=== PATIENT | female | born 1980 | race Hispanic/Latino ===

== ENCOUNTER 2017-04-16 01:07 | Emergency (ER) | payer OTHER, SELFPAY ==
[2017-04-16 01:53] LABS: #Basophils 0.1 thou/uL (0.0-0.2); #Eosinphils 0.3 thou/uL (0.0-0.7); #Lymphocytes 3.2 thou/uL (1.20-3.40); #Monocytes 0.3 thou/uL (0.11-0.59); #Neutrophils 5.8 thou/uL (1.40-6.50); %Eosinophils 3.4 % (0.0-10.0); %Lymphocytes 32.8 % (21.0-51.0); %Monocytes 3.5 % (0.0-10.0); %Neutrophils 59.4 % (42.0-75.0); Hemoglobin 14.2 g/dL (12.0-16.0); Mean Corpuscular HGB CONC 34.7 g/dL (32.0-36.0); Mean Corpuscular Hemoglobin 32.5 pg (27.0-31.0); Mean Corpuscular Volume 93.6 fl (81.0-99.0); Mean Platelet Volume 6.8 fL (7.4-10.4); Platelet Count 320 thou/uL (130-400); RBC Distribution Width 11.4 % (11.5-14.5); Red Blood Cell (RBC) Count 4.37 mill/uL (4.20-5.40); White Blood Cell (WBC) Count 9.7 thou/uL (4.8-10.8)
[2017-04-16 03:12] LABS: ALT (SGPT) 212 U/L (8-55); AST (SGOT) 476 U/L (5-34); Albumin 3.9 g/dL (3.5-5.0); Alkaline Phosphatase 63 U/L (40-150); Anion Gap 10 mmol/L (10-20); BUN (Urea Nitrogen) 11 mg/dL (7.0-18.7); Bilirubin, Total 0.4 mg/dL (0.2-1.2); Calc. Creatinine Clearance 0 mL/min (70-130); Calcium 9.2 mg/dL (7.8-10.44); Carbon Dioxide 27 mmol/L (22-29); Chloride 100 mmol/L (98-107); Estimated GFR-MDRD Greater than 90; Globulin 3.1 g/dL (2.4-3.5); Glucose 101 mg/dL (70-105); Potassium 3.6 mmol/L (3.5-5.1); Sodium 133 mmol/L (136-145)
[2017-04-16 06:23] LABS: Troponin I Less than 0.010 ng/mL (< 0.028)
[2017-04-16 06:24] LABS: CKMB 12.4 ng/mL (0-6.6)
--- NOTE | 2017-04-16 10:05 | ULT ---
PRELIMINARY REPORT/[facility]/EMERGENCY AFTER HOURS PROCEDURE: EXAM: US Duplex Bilateral Upper Extremity Veins CLINICAL HISTORY: 36 years old, female; Pain; Other: Bue pain, swelling TECHNIQUE: Real-time ultrasound scan of the veins of the bilateral upper extremities with color Doppler flow, sp ectral waveform analysis and compression. COMPARISON: No relevant prior studies available. FINDINGS: Mildly limited due to swelling Right deep veins: Unremarkable. No DVT in the right internal jugular, subclavian, axillary, or brachi al veins. The veins demonstrate normal color flow, are normally compressible, with normal phasic flow and/or augmentation response. Right superficial veins: Unremarkable. No thrombus in the visualized right basilic and cephalic veins . Left deep veins: Unremarkable. No DVT in the left internal jugular, subclavian, axillary, or brachial veins. The veins demonstrate normal color flow, are normally compressible, with normal phasic flow a nd/or augmentation response. Left superficial veins: Unremarkable. No thrombus in the visualized left basilic and cephalic veins. Soft tissues: No acute findings. IMPRESSION: No definite sonographic evidence for deep venous thrombosis in the upper extremities Thank you for allowing us to participate in the care of your patient. Dictated and Authenticated by: Mikey Fitzgerald MD 04/16/2017 7:12 AM Central Time ([place] & [place]) FINAL REPORT EMERGENCY AFTER HOURS BILATERAL UPPER EXTREMITY VENOUS DOPPLER: Date: 04/16/17 IMPRESSION: I agree with the preliminary interpretation given by Margarita. POS: [facility]
--- NOTE | 2017-04-16 10:07 | CT ---
PRELIMINARY REPORT/[facility]/EMERGENCY AFTER HOURS PROCEDURE: EXAM: CT Angiography Chest With Intravenous Contrast CLINICAL HISTORY: 36 years old, female; Signs and symptoms; Other: Extremity swelling; Patient HX: , F34 presents to ed C/O bue swelling and pain that began 5 days ago and gradually worsened. Pt reports no HX of blood cl ots or of similar SX. Pt denies SOB or cp. Pt denies trauma or khushboo. TECHNIQUE: Axial computed tomographic angiography images of the chest with intravenous contrast using pulmonary embolism protocol. COMPARISON: No relevant prior studies available. FINDINGS: Pulmonary arteries: No pulmonary embolism. Aorta: No acute findings. No thoracic aortic aneurysm. Lungs: Unremarkable. No mass. No consolidation. Pleural space: No significant effusion. No pneumothorax. Heart: No cardiomegaly. No significant pericardial effusion. No evidence of RV dysfunction. Bones/joints: No acute fracture. No dislocation. Soft tissues: Mild infiltration/swelling over the left pectoralis muscle and manubrium/sternum. No di scernible drainable collection Lymph nodes: Unremarkable. No enlarged lymph nodes. IMPRESSION: No definite pulmonary embolism detected Mild infiltration over the superior chest wall without definite focal collection. Correlate clinicall y for infection/cellulitis Thank you for allowing us to participate in the care of your patient. Dictated and Authenticated by: Mikey Fitzgerald MD 04/16/2017 7:19 AM Central Time ([place] & [place]) FINAL REPORT EMERGENCY AFTER HOURS CT PULMONARY ANGIOGRAM WITH IV CONTRAST AND 3D MIP RECONSTRUCTIONS: Date: 04/16/17 IMPRESSION: I agree with the preliminary interpretation given by [facility]. No evidence for central or segmental pulmo nary embolus. Soft tissue findings involving the anterior chest wall suggestive of cellulitis or jaspreet a. Heterogeneous density within the gallbladder likely reflecting gallstones versus gallbladder sludg e. POS: [facility]
[2017-04-16] MEDS ORDERED: ISOVUE-370 76%-LOCM 1 ML ONE (14:00)
== END 2017-04-16 11:23 | disposition home or self-care (01) ==
LOC: ERS 01:07
DX: M62.82 Rhabdomyolysis (principal)
CPT/HCPCS: 36415; 71275; 80053; 82553; 84484; 85025; 93970; 96360; 96361

== ENCOUNTER 2017-04-18 17:10 | Emergency (ER) | payer OTHER ==
[2017-04-18 18:08] LABS: #Eosinphils 0.3 thou/uL (0.0-0.7); #Monocytes 0.3 thou/uL (0.11-0.59); #Neutrophils 4.5 thou/uL (1.40-6.50); %Basophils 0.4 % (0.0-1.0); %Eosinophils 3.8 % (0.0-10.0); %Lymphocytes 28.2 % (21.0-51.0); %Monocytes 4.8 % (0.0-10.0); %Neutrophils 62.9 % (42.0-75.0); Hemoglobin 13.4 g/dL (12.0-16.0); Mean Corpuscular HGB CONC 34.4 g/dL (32.0-36.0); Mean Corpuscular Hemoglobin 32.3 pg (27.0-31.0); Platelet Count 318 thou/uL (130-400); RBC Distribution Width 11.4 % (11.5-14.5); Red Blood Cell (RBC) Count 4.14 mill/uL (4.20-5.40); White Blood Cell (WBC) Count 7.2 thou/uL (4.8-10.8)
[2017-04-18 18:23] LABS: BHCG - Serum Negative (NEGATIVE); Pregs Control Background? CLEAR/WHITE (CLR/WHITE); Pregs Control Bar Appear? YES (CONTROL BAR)
[2017-04-18 18:26] LABS: ALT (SGPT) 109 U/L (8-55); AST (SGOT) 134 U/L (5-34); Albumin 3.6 g/dL (3.5-5.0); Alkaline Phosphatase 58 U/L (40-150); Anion Gap 13 mmol/L (10-20); BUN (Urea Nitrogen) 8 mg/dL (7.0-18.7); Bilirubin, Total 0.2 mg/dL (0.2-1.2); Calc. Creatinine Clearance 0 mL/min (70-130); Calcium 8.9 mg/dL (7.8-10.44); Carbon Dioxide 23 mmol/L (22-29); Chloride 106 mmol/L (98-107); Estimated GFR-MDRD Greater than 90; Globulin 2.9 g/dL (2.4-3.5); Glucose 95 mg/dL (70-105); Potassium 3.8 mmol/L (3.5-5.1); Protein, Total 6.5 g/dL (6.0-8.3); Sodium 138 mmol/L (136-145)
[2017-04-18 19:27] LABS: CK (CPK) 4589 U/L (29-168)
[2017-04-18 20:23] LABS: Free T4 (Free Thyroxine) 1.06 ng/dL (0.70-1.48); Thyroid Stimulating Hormone 1.145 uIU/mL (0.35-4.94)
[2017-04-18 21:07] LABS: Bilirubin Negative (Negative); Blood, Urine Negative (Negative); Clarity CLEAR (Clear); Glucose, Urine (Dipstick) Negative (Negative); Leukocyte Negative (Negative); Nitrite Negative (Negative); Protein, Urine (Dipstick) Negative (Neg-Trace); Specific Gravity, Urine 1.008 (1.002-1.036); pH, Urine 7.5 (5.0-9.0)
--- NOTE | 2017-04-18 21:15 | ULT ---
LEFT UPPER EXTREMITY VENOUS DUPLEX STUDY: 04/18/17 INDICATION: Left upper extremity pain and edema. Color doppler and spectral analysis with compression. Study is performed in the veins of the left upp er extremity. Left internal jugular vein shows normal flow and compression. Left subclavian vein demonstrates vesna l blood flow with doppler. The left axillary vein, basilic vein, cephalic vein, and visualized radial and ulnar veins all show normal flow and compression. The left brachial vein shows normal flow and c ompression. IMPRESSION: No evidence of venous thrombosis involving the left upper extremity. POS: [facility]
== END 2017-04-18 21:38 | disposition home or self-care (01) ==
LOC: ERS 17:10
DX: M62.82 Rhabdomyolysis (principal)
CPT/HCPCS: 36415; 80053; 81003; 82550; 84439; 84443; 84481; 84703; 85025